=== PATIENT | male | born 1945 | race Caucasian/White ===

== ENCOUNTER 2019-10-07 10:09 | Inpatient (IN) | payer OTHER ==
[2019-10-07] MEDS ORDERED: KETOROLAC TROMETHAMINE 30 MG/1 ML VIAL IVPUSH ONE (10:53)
[2019-10-07] MEDS ORDERED: SODIUM CHLORIDE 1,000 ML IV STA ×2 (10:53→12:02)
--- NOTE | 2019-10-07 11:00 | PDOC ---
History of Present Illness - General Chief Complaint: Pain Stated Complaint: TESTICULAR PAIN Time Seen by Provider: 10/07/19 10:19 - History of Present Illness Initial Comments: 10/07/19 10:54 74 M with no PMH presents to ED with L scrotal pain x 6 days. Pt states that he has pain isolated to his L testicle. Denies any flank pain. Denies abdominal pain. The pain is constant. He notes associated N+V. No diarrhea but has been constipated for several days. Denies any injury. No masses. No redness/ swelling. No dysuria. Pt denies any recent sexual activity, no h/o STIs. No rectal pain. Notes that he previously saw a urologist for a similar problem and was told he had prostate "fullness". He is not on any meds currently. Denies any difficulty urinating. Denies F/C. Past History - Past Medical History Allergies/Adverse Reactions: Allergies Allergy/AdvReac Type Severity Reaction Status Date / Time No Known Allergies Allergy Verified 10/07/19 10:10 Home Medications: Ambulatory Orders NK [No Known Home Medication] 10/07/19 COPD: No - Psycho Social/Smoking Cessation Hx Smoking History: Never smoked Have you smoked in the past 12 months: No Information on smoking cessation initiated: No Hx Alcohol Use: No Drug/Substance Use Hx: No Review of Systems - Review of Systems Comments:: 10/07/19 10:59 "GENERAL/CONSTITUTIONAL: No fever or chills. No weakness. HEAD, EYES, EARS, NOSE AND THROAT: No change in vision. No ear pain or discharge. No sore throat. CARDIOVASCULAR: No chest pain, no shortness of breath, no loss of consciousness RESPIRATORY: No cough, wheezing, or hemoptysis. GASTROINTESTINAL: + nausea, vomiting, no diarrhea or constipation. GENITOURINARY: + L scrotal pain, No dysuria, frequency, or change in urination. MUSCULOSKELETAL: No joint or muscle swelling or pain. No neck or back pain. SKIN: No rash NEUROLOGIC: No vertigo, no change in strength/sensation. ENDOCRINE: No increased thirst. No abnormal weight change. HEMATOLOGIC/LYMPHATIC: No anemia, easy bleeding, or history of blood clots. ALLERGIC/IMMUNOLOGIC: No hives or skin allergy. *Physical Exam - Vital Signs Last Vital Signs Temp Pulse Resp BP Pulse Ox 98.2 F 109 H 20 143/100 99 10/07/19 10:09 10/07/19 10:09 10/07/19 10:09 10/07/19 10:09 10/07/19 10:09 - Physical Exam 10/07/19 10:59 "GENERAL: Awake, alert, and fully oriented, in no acute distress. HEAD: No signs of trauma EYES: PERRLA, EOMI, sclera anicteric, conjunctiva clear ENT: Auricles normal inspection, hearing grossly normal, nares patent, oropharynx clear without exudates. Moist mucosa NECK: Nontender, no stepoffs, Normal ROM, supple, no lymphadenopathy, JVD, or masses LUNGS: Breath sounds equal, clear to auscultation bilaterally. No wheezes, and no crackles HEART: Regular rate and rhythm, normal S1 and S2, no murmurs, rubs or gallops ABDOMEN: Soft, nontender, normoactive bowel sounds. No guarding, no rebound. No masses EXTREMITIES: Normal range of motion, no edema. No clubbing or cyanosis. No cords, erythema, or tenderness NEUROLOGICAL: Cranial nerves II through XII intact. 5/5 strength and sensation in all extremities, Normal speech, normal gait, normal cerebellar function SKIN: Warm, Dry, normal turgor, no rashes or lesions noted. : + L scrotal tenderness without any masses, no erythema, no inguinal hernia RECTAL: + external hemorrhoid, no prostate bogginess or tenderness, brown stool ED Treatment Course - LABORATORY CBC & Chemistry Diagram: 10/07/19 11:18 10/07/19 11:18 - RADIOLOGY Radiology Studies Ordered: Category Date Time Status SCROTUM AND CONTENTS US [US] Stat Ultrasound 10/07/19 10:53 Ordered Medical Decision Making - Medical Decision Making 10/07/19 11:00 74 M with isolated L scrotal pain and tenderness. No abdominal tenderness to suggest intraabdominal pathology. No evidence of prostatitis on exam. No infectious symptoms. Normal external genitalia. - Labs, UA - Scrotal US - Pain control 10/07/19 15:[address] obtained, showing L ureteral stone with hydro Labs notable for MARY with Cr 2.2 Will admit for IV hydration and continued pain control Discharge - Discharge Information Problems reviewed: Yes Clinical Impression/Diagnosis: Kidney stone - Admission Yes - Follow up/Referral - Patient Discharge Instructions - Post Discharge Activity
[2019-10-07] MEDS ORDERED: KETOROLAC TROMETHAMINE 30 MG/1 ML VIAL ONE (11:13)
[2019-10-07] MEDS ORDERED: ONDANSETRON 4 MG/2 ML VIAL ONE ×2 (11:14→13:23)
[2019-10-07] MEDS ORDERED: ONDANSETRON 4 MG/2 ML VIAL IVPB ONE (11:21)
[2019-10-07 11:26] LABS: HEMATOCRIT 42.1 % (35.4-49); HEMOGLOBIN 14.2 GM/dl (11.7-16.9); MCH 28.7 pg (25.7-33.7); MCHC 33.8 g/dl (32.0-35.9); MEAN CELL VOLUME 84.9 fl (80-96); MEAN PLT VOLUME 11.6 fl (7.5-11.1); PLATELET COUNT 237 K/MM3 (134-434); RBC 4.96 M/mm3 (4.00-5.60); RDW 13.2 % (11.9-15.9); WHITE BLOOD COUNT 13.3 K/mm3 (4.0-10.8)
[2019-10-07 11:39] LABS: ALBUMIN 3.5 g/dl (3.4-5.0); BILIRUBIN,TOTAL 0.6 mg/dl (0.2-1); CALCIUM 9.3 mg/dl (8.5-10); CREATININE 2.2 mg/dl (0.55-1.3); POTASSIUM 4.4 mmol/L (3.5-5.1); TOT PROT 7.1 g/dl (6.4-8.2)
[2019-10-07 11:55] LABS: PLATELET ESTIMATE ADEQUATE
[2019-10-07] MEDS ORDERED: ACETAMINOPHEN 1000 MG/100 ML VIAL (NON FORMULARY) IVPB ONE (11:58)
[2019-10-07] MEDS ORDERED: ACETAMINOPHEN INJECTION 100 ML IVPB ONE (12:09)
[2019-10-07] MEDS ORDERED: morphine CARPU-JECT 4 MG/1 ML DISP.SYRIN IVPUSH ONE ×2 (13:13→13:59)
[2019-10-07] MEDS ORDERED: morphine SULFATE 4 MG/ML VIAL ONE ×2 (13:17→14:01)
[2019-10-07] MEDS ORDERED: ONDANSETRON 4 MG TABLET PO ONE (13:23)
[2019-10-07 13:51] LABS: EPITHELIAL CELLS RARE /hpf
[2019-10-07] MEDS ORDERED: HYDROmorphone HCL CARPU-JECT 1 MG/1 ML DISP.SYRIN IVPUSH ONE (15:32)
[2019-10-07] MEDS ORDERED: HYDROmorphone HCL CARPU-JECT 1 MG/1 ML DISP.SYRIN ONE (15:34)
--- NOTE | 2019-10-07 16:17 | HP ---
CHIEF COMPLAINT: Left scrotal pain PCP: Dr. Campbell/Landon HISTORY OF PRESENT ILLNESS: 74 M with no PMH presents to ED with L scrotal pain x 6 days. Pt states that he has pain isolated to his L testicle. Denies any flank pain. Denies abdominal pain. The pain is constant. He notes associated N+V. No diarrhea but has been constipated for several days. Denies any injury. No masses. No redness/ swelling. No dysuria. Pt denies any recent sexual activity, no h/o STIs. No rectal pain. Notes that he previously saw a urologist for a similar problem and was told he had prostate "fullness". He is not on any meds currently. Denies any difficulty urinating. Denies F/C. ER course was notable for: (1) WBC 13.3, p 109 (2) BUN 52, Cr 2.2 (baseline unknown) Recent Travel: No PAST MEDICAL HISTORY: None reported PAST SURGICAL HISTORY: None reported Social History: used to work as a subcontract manager Smoking: never Alcohol: no Drugs: no Allergies No Known Allergies Allergy (Verified 10/07/19 10:10) HOME MEDICATIONS: Home Medications Medication Instructions Recorded NK [No Known Home Medication] 10/07/19 REVIEW OF SYSTEMS CONSTITUTIONAL: Absent: fever, chills, diaphoresis, generalized weakness, malaise, loss of appetite, weight change HEENT: Absent: rhinorrhea, nasal congestion, throat pain, throat swelling, difficulty swallowing, mouth swelling, ear pain, eye pain, visual changes CARDIOVASCULAR: Absent: chest pain, syncope, palpitations, irregular heart rate, lightheadedness , peripheral edema RESPIRATORY: Absent: cough, shortness of breath, dyspnea with exertion, orthopnea, wheezing, stridor, hemoptysis GASTROINTESTINAL: Absent: abdominal pain, abdominal distension, nausea, vomiting, diarrhea, constipation, melena, hematochezia GENITOURINARY: +left testicular pain, mild left flank pain Absent: dysuria, frequency, urgency, hesitancy, hematuria MUSCULOSKELETAL: Absent: myalgia, arthralgia, joint swelling, back pain, neck pain SKIN: Absent: rash, itching, pallor HEMATOLOGIC/IMMUNOLOGIC: Absent: easy bleeding, easy bruising, lymphadenopathy, frequent infections ENDOCRINE: Absent: unexplained weight gain, unexplained weight loss, heat intolerance, cold intolerance NEUROLOGIC: Absent: headache, focal weakness or paresthesias, dizziness, unsteady gait, seizure, mental status changes, bladder or bowel incontinence PSYCHIATRIC: Absent: anxiety, depression, suicidal or homicidal ideation, hallucinations. PHYSICAL EXAMINATION Vital Signs - 24 hr 10/07/19 10/07/19 10:09 15:41 Temperature 98.2 F 98.2 F Pulse Rate 109 H Pulse Rate [ 88 Right Radial] Respiratory 20 20 Rate Blood Pressure 143/100 Blood Pressure 128/73 [Left Arm] O2 Sat by Pulse 99 99 Oximetry (%) GENERAL: Awake, alert, and fully oriented, in no acute distress. HEAD: Normal with no signs of trauma. EYES: Pupils equal, round and reactive to light, extraocular movements intact, sclera anicteric, conjunctiva clear. LUNGS: Breath sounds equal, clear to auscultation bilaterally. HEART: Regular rate and rhythm, normal S1 and S2 ABDOMEN: Soft, nontender, not distended, normoactive bowel sounds, no guarding, no rebound tenderness MUSCULOSKELETAL: Normal range of motion at all joints. No bony deformities or tenderness. No CVA tenderness. UPPER EXTREMITIES: 2+ pulses, warm, well-perfused. No cyanosis. No clubbing. No peripheral edema. LOWER EXTREMITIES: 2+ pulses, warm, well-perfused. No calf tenderness. No peripheral edema. GI/: No scrotal tenderness, no edema, no erythema, tiny white pustule left testicle NEUROLOGICAL: Cranial nerves II-XII intact. Normal speech. Laboratory Results - last 24 hr 10/07/19 10/07/19 10/07/19 11:05 11:18 11:18 WBC 13.3 H RBC 4.96 Hgb 14.2 Hct 42.1 MCV 84.9 MCH 28.7 MCHC 33.8 RDW 13.2 Plt Count 237 MPV 11.6 H Absolute Neuts (auto) 11.0 Neutrophils % No Result Required. Neutrophils % (Manual) 83.0 H Lymphocytes % No Result Required. Lymphocytes % (Manual) 14.0 Monocytes % (Manual) 3 L Platelet Estimate Adequate Sodium 135 L Potassium 4.4 Chloride 106 Carbon Dioxide 20 L Anion Gap 9 BUN 52.0 H Creatinine 2.2 H Est GFR (CKD-EPI)AfAm 33.45 Est GFR (CKD-EPI)NonAf 28.86 Random Glucose 128 H Calcium 9.3 Total Bilirubin 0.6 AST 13 L ALT 12 L Alkaline Phosphatase 62 Total Protein 7.1 Albumin 3.5 Urine Color Urine Appearance Urine pH Urine Protein Urine Glucose (UA) Urine Ketones Urine Blood Urine Nitrite Urine Bilirubin Urine Urobilinogen Ur Leukocyte Esterase Urine RBC Urine WBC Ur Transition Epith Cell Stool Occult Blood Negative 10/07/19 13:13 WBC RBC Hgb Hct MCV MCH MCHC RDW Plt Count MPV Absolute Neuts (auto) Neutrophils % Neutrophils % (Manual) Lymphocytes % Lymphocytes % (Manual) Monocytes % (Manual) Platelet Estimate Sodium Potassium Chloride Carbon Dioxide Anion Gap BUN Creatinine Est GFR (CKD-EPI)AfAm Est GFR (CKD-EPI)NonAf Random Glucose Calcium Total Bilirubin AST ALT Alkaline Phosphatase Total Protein Albumin Urine Color Yellow Urine Appearance Clear Urine pH 5.5 Urine Protein Negative Urine Glucose (UA) Negative Urine Ketones Negative Urine Blood Trace-intact Urine Nitrite Negative Urine Bilirubin Negative Urine Urobilinogen 0.2 Ur Leukocyte Esterase Negative Urine RBC 0-2 Urine WBC 0-2 Ur Transition Epith Cell Rare Stool Occult Blood ASSESSMENT/PLAN: 74 year-old male with no reported significant PMH. Admitted for hydronephrosis secondary to a ureteral stone and elevated creatinine. Mild left hydronephrosis secondary to left ureteral calculus --CTAP: 3mm distal left ureteral calculus at level of lower pelvis with resultant mild hydronephrosis; non-obstructing, should pass, strain urine --US: no testicular torsion or epididymoorchitis; loculated/septated right epididymal cyst/spermatoceles --IV fluids --pain management; avoid ketorolac due to elevated Cr --start tamsulosin --urology consult placed --UA negative; +leukocytosis, will start empiric ceftriaxone Elevated creatinine --baseline unknown --bladder scan now --US kidneys, bladder, assess for post-void residual FEN Fluids: NS@125mL/hr Electrolytes: replete as indicated Nutrition: regular diet DVT prophylaxis: subq heparin Dispo: continues to require inpatient care. Full code. ISTOP Search Terms: Juancarlos Guardado, 1945 Search Date: 10/07/2019 04:30:44 PM The Drug Utilization Report below displays all of the controlled substance prescriptions, if any, that your patient has filled in the last twelve months. The information displayed on this report is compiled from pharmacy submissions to the Department, and accurately reflects the information as submitted by the pharmacies. This report was requested by: Ana Singleton | Reference #: [id number] There are no results for the search terms that you entered. Visit type - Emergency Visit Emergency Visit: Yes ED Registration Date: 10/07/19 Care time: The patient presented to the Emergency Department on the above date and was hospitalized for further evaluation of their emergent condition. - New Patient This patient is new to me today: Yes Date on this admission: 10/09/19 - Critical Care Critical Care patient: No
[2019-10-07] MEDS: SODIUM CHLORIDE 1,000 ML IV SCH (16:38)
[2019-10-07] MEDS: TAMSULOSIN HCL 0.4 MG CAP PO SCH (17:35)
[2019-10-07] MEDS: NICOTINE 21 MG/24 HOURS TOPICAL PATCH TD SCH (17:35)
[2019-10-07 17:37] VITALS: BMI 26.3
[2019-10-07] MEDS ORDERED: CEFTRIAXONE 1 G/50 ML PREMIX 50 ML IVPB SCH (18:00)
[2019-10-07] MEDS ORDERED: CEFTRIAXONE 1 GM in DEXTROSE 5%-WATER - 50 ML IVPB SCH (18:00)
[2019-10-07] MEDS: HEPARIN NA (PORCINE) 5,000 UNITS/ML 1ML VIAL SQ SCH (21:50)
[2019-10-08] MEDS: MELATONIN 1 MG TABLET PO SCH ×2 (00:32→21:14)
[2019-10-08] MEDS: HEPARIN NA (PORCINE) 5,000 UNITS/ML 1ML VIAL SQ SCH ×3 (06:25→21:14)
[2019-10-08 08:01] LABS: BASO % 0.3 % (0-2.0); EOS % 1.2 % (0-4.5); HEMATOCRIT 31.5 % (35.4-49); HEMOGLOBIN 10.6 GM/dl (11.7-16.9); LYMPH % 14.5 % (8-40); MCH 28.8 pg (25.7-33.7); MCHC 33.8 g/dl (32.0-35.9); MEAN CELL VOLUME 85.3 fl (80-96); MEAN PLT VOLUME 10.7 fl (7.5-11.1); MONO % 7.3 % (3.8-10.2); NEUT % 76.7 % (42.8-82.8); PLATELET COUNT 147 K/MM3 (134-434); RBC 3.69 M/mm3 (4.00-5.60); RDW 13.1 % (11.9-15.9); WHITE BLOOD COUNT 9.2 K/mm3 (4.0-10.8)
[2019-10-08 08:09] LABS: ALBUMIN 2.5 g/dl (3.4-5.0); BILIRUBIN,TOTAL 0.4 mg/dl (0.2-1); CALCIUM 8.3 mg/dl (8.5-10); CREATININE 1.9 mg/dl (0.55-1.3); MAGNESIUM 1.6 mg/dL (1.8-2.4); POTASSIUM 4.6 mmol/L (3.5-5.1)
[2019-10-08 08:10] LABS: INR 1.07 (0.82-1.09)
[2019-10-08] MEDS: TAMSULOSIN HCL 0.4 MG CAP PO SCH (10:11)
[2019-10-08] MEDS: NICOTINE 21 MG/24 HOURS TOPICAL PATCH TD SCH (10:11)
--- NOTE | 2019-10-08 13:11 | EKG ---
Test Reason : Blood Pressure : / mmHG Vent. Rate : 083 BPM Atrial Rate : 083 BPM P-R Int : 202 ms QRS Dur : 106 ms QT Int : 378 ms P-R-T Axes : 057 -23 001 degrees QTc Int : 444 ms NORMAL SINUS RHYTHM CANNOT RULE OUT ANTERIOR INFARCT , AGE UNDETERMINED NONSPECIFIC ST ABNORMALITY NO PREVIOUS ECGS AVAILABLE Confirmed by SUZANNE CACERES MD ([id number]) on 10/08/2019 1:10:51 PM Referred By: ATTILA DEL VALLE Confirmed By:SUZANNE CACERES MD
[2019-10-08] MEDS: HYDROmorphone HCL CARPU-JECT 1 MG/1 ML DISP.SYRIN IVPUSH PRN (14:07)
[2019-10-08] MEDS: SODIUM CHLORIDE 1,000 ML IV SCH (17:57)
[2019-10-08] MEDS: ACETAMINOPHEN 1000 MG/100 ML VIAL (NON FORMULARY) IVPB PRN (19:41)
[2019-10-08] MEDS: ONDANSETRON 4 MG/2 ML VIAL IVPUSH PRN (19:46)
--- NOTE | 2019-10-08 22:05 | PN ---
Physical Exam: SUBJECTIVE: Patient seen and examined. Was pain free last night and most of today. This afternoon, left testicular pain and nausea returned. OBJECTIVE: Vital Signs Period Temp Pulse Resp BP Sys/Velasquez Pulse Ox Last 24 Hr 98.0 F-98.5 F 76-106 16-19 104-134/57-70 99-100 GENERAL: Awake, alert, and fully oriented, in no acute distress. HEAD: Normal with no signs of trauma. EYES: Pupils equal, round and reactive to light, extraocular movements intact, sclera anicteric, conjunctiva clear. LUNGS: Breath sounds equal, clear to auscultation bilaterally. HEART: Regular rate and rhythm, normal S1 and S2 ABDOMEN: Soft, nontender, not distended, normoactive bowel sounds, no guarding, no rebound tenderness MUSCULOSKELETAL: Normal range of motion at all joints. No bony deformities or tenderness. No CVA tenderness. UPPER EXTREMITIES: 2+ pulses, warm, well-perfused. No cyanosis. No clubbing. No peripheral edema. LOWER EXTREMITIES: 2+ pulses, warm, well-perfused. No calf tenderness. No peripheral edema. GI/: No scrotal tenderness, no edema, no erythema, tiny white pustule left testicle NEUROLOGICAL: Cranial nerves II-XII intact. Normal speech. Laboratory Results - last 24 hr 10/08/19 10/08/19 10/08/19 07:25 07:25 07:25 WBC 9.2 RBC 3.69 L Hgb 10.6 L Hct 31.5 L D MCV 85.3 MCH 28.8 MCHC 33.8 RDW 13.1 Plt Count 147 D MPV 10.7 Absolute Neuts (auto) 7.1 Neutrophils % 76.7 Lymphocytes % 14.5 Monocytes % 7.3 Eosinophils % 1.2 Basophils % 0.3 PT with INR 12.0 INR 1.07 PTT (Actin FS) 23.0 L Sodium 135 L Potassium 4.6 Chloride 111 H Carbon Dioxide 21 Anion Gap 3 L BUN 42.0 H Creatinine 1.9 H Est GFR (CKD-EPI)AfAm 39.93 Est GFR (CKD-EPI)NonAf 34.45 Random Glucose 105 Calcium 8.3 L Magnesium 1.6 L Total Bilirubin 0.4 AST 10 L ALT 9 L Alkaline Phosphatase 45 D Total Protein 5.0 L Albumin 2.5 L Active Medications Generic Name Dose Route Start Last Admin Trade Name Freq PRN Reason Stop Dose Admin Acetaminophen 1,000 mg 10/07/19 18:03 10/08/19 19:41 Ofirmev Injection - IVPB 1,000 mg Q6H PRN Administration PAIN LEVEL 1-5 Heparin Sodium (Porcine) 5,000 unit 10/07/19 22:00 10/08/19 21:14 Heparin - SQ 5,000 unit TID LATESHA Administration Hydromorphone HCl 0.5 mg 10/07/19 18:03 10/08/19 14:07 Dilaudid Injection - IVPUSH 0.5 mg Q4H PRN Administration PAIN LEVEL 6-10 Sodium Chloride 1,000 mls @ 125 mls/hr 10/07/19 16:30 10/08/19 17:57 Normal Saline - IV 125 mls/hr ASDIR LATESHA Administration Ceftriaxone Sodium 50 mls @ 200 mls/hr 10/07/19 18:00 10/08/19 10:11 Ceftriaxone 1 Gm-D5w Bag IVPB 200 mls/hr DAILY LATESHA Administration Protocol Melatonin 1 mg 10/08/19 22:00 10/08/19 21:14 Melatonin PO 1 mg HS LATESHA Administration Nicotine 21 mg 10/07/19 17:45 10/08/19 10:11 Nicoderm Patch - TD 21 mg DAILY LATESHA Administration Ondansetron HCl 4 mg 10/08/19 19:33 10/08/19 19:46 Zofran Injection IVPUSH 4 mg Q6H PRN Administration NAUSEA Tamsulosin HCl 0.4 mg 10/07/19 17:00 10/08/19 10:11 Flomax - PO 0.4 mg 0830 LATESHA Administration ASSESSMENT/PLAN 74 year-old male with no reported significant PMH. Admitted for hydronephrosis secondary to a ureteral stone and elevated creatinine. Mild left hydronephrosis secondary to left ureteral calculus --CTAP: 3mm distal left ureteral calculus at level of lower pelvis with resultant mild hydronephrosis; non-obstructing, should pass, strain urine --US: no testicular torsion or epididymoorchitis; loculated/septated right epididymal cyst/spermatoceles --IV fluids --pain management; avoid ketorolac due to elevated Cr --start tamsulosin --urology consult still pending --UA negative; UC negative; observe off antibiotics Elevated creatinine --Cr 2.2 on admission, 1.9 today --US renal: unremarkable --US bladder: no post-void residual --continue to monitor renal function, continue IV fluids FEN Fluids: NS@125mL/hr Electrolytes: replete as indicated Nutrition: regular diet DVT prophylaxis: subq heparin Dispo: continues to require inpatient care. Full code. Visit type - Emergency Visit Emergency Visit: Yes ED Registration Date: 10/07/19 Care time: The patient presented to the Emergency Department on the above date and was hospitalized for further evaluation of their emergent condition. - New Patient This patient is new to me today: No - Critical Care Critical Care patient: No
[2019-10-09] MEDS: HEPARIN NA (PORCINE) 5,000 UNITS/ML 1ML VIAL SQ SCH ×3 (06:40→21:18)
[2019-10-09] MEDS: HYDROmorphone HCL CARPU-JECT 1 MG/1 ML DISP.SYRIN IVPUSH PRN (07:14)
[2019-10-09] MEDS: ONDANSETRON 4 MG/2 ML VIAL IVPUSH PRN (07:24)
[2019-10-09 08:23] LABS: BASO % 0.5 % (0-2.0); EOS % 1.8 % (0-4.5); HEMATOCRIT 29.4 % (35.4-49); HEMOGLOBIN 9.7 GM/dl (11.7-16.9); LYMPH % 22.2 % (8-40); MCH 28.1 pg (25.7-33.7); MEAN CELL VOLUME 85.1 fl (80-96); MEAN PLT VOLUME 10.2 fl (7.5-11.1); MONO % 8.2 % (3.8-10.2); NEUT % 67.3 % (42.8-82.8); PLATELET COUNT 146 K/MM3 (134-434); RBC 3.45 M/mm3 (4.00-5.60); RDW 12.6 % (11.9-15.9); WHITE BLOOD COUNT 7.6 K/mm3 (4.0-10.8)
--- NOTE | 2019-10-09 08:28 | CON.GU ---
Consult Consult Specialty:: urology Reason for Consultation:: left ureteral stone - History of Present Illness Chief Complaint: left ureteral stone History of Present Illness: Patient is a 74 year old male with history of distal left ureteral stone. The patient currently has left scrotal discomfort and nausea on dilaudid and zofran. Renal sonogram performed yesterday showed no hydronephrosis. His serum creatinine has risen to 2.2. Patient denies gross hematuria or fever and chills. - Alcohol/Substance Use Hx Alcohol Use: No - Smoking History Smoking history: Never smoked Have you smoked in the past 12 months: No Home Medications - Allergies Allergies/Adverse Reactions: Allergies Allergy/AdvReac Type Severity Reaction Status Date / Time No Known Allergies Allergy Verified 10/07/19 10:10 - Home Medications Home Medications: Ambulatory Orders NK [No Known Home Medication] 10/07/19 Physical Exam- Vital Signs: Vital Signs Temperature 99.1 F 10/09/19 06:00 Pulse Rate 84 10/09/19 06:00 Respiratory Rate 18 10/09/19 06:00 Blood Pressure 103/54 L 10/09/19 06:00 O2 Sat by Pulse Oximetry (%) 98 10/09/19 06:00 Constitutional: Yes: Well Nourished, No Distress, Calm Eyes: Yes: WNL, Conjunctiva Clear, EOM Intact HENT: Yes: WNL, Atraumatic, Normocephalic Neck: Yes: WNL, Supple, Trachea Midline Cardiovascular: Yes: Regular Rate and Rhythm Respiratory: Yes: Regular Gastrointestinal: Yes: Soft Renal/: Yes: CVA Tenderness - Left (mild) Kidneys: Yes: Flank Pain Left Pelvis: Yes: WNL, Bladder Non Palpable Testicles: Yes: WNL Scrotum: Yes: WNL Penis: Yes: WNL Prostate Exam: Yes: Deferred Imaging - Results Cat Scan: Report Reviewed Ultrasound: Report Reviewed Assessment/Plan imression distal left ureteral stone acute kidney injury plan continue with rocephin and flomax toradol may be used strain all urine
[2019-10-09 08:41] LABS: ALBUMIN 2.4 g/dl (3.4-5.0); BILIRUBIN,TOTAL 0.5 mg/dl (0.2-1); CALCIUM 8.3 mg/dl (8.5-10); CREATININE 1.6 mg/dl (0.55-1.3); MAGNESIUM 1.6 mg/dL (1.8-2.4); POTASSIUM 3.9 mmol/L (3.5-5.1)
[2019-10-09] MEDS: TAMSULOSIN HCL 0.4 MG CAP PO SCH (10:00)
[2019-10-09] MEDS: NICOTINE 21 MG/24 HOURS TOPICAL PATCH TD SCH (10:38)
--- NOTE | 2019-10-09 10:51 | PN ---
Physical Exam: SUBJECTIVE: Patient seen and examined, still c/o left testicular pain, denies any urinary symptoms,fever, chills, abdominal pain, N/V/D. OBJECTIVE: Vital Signs Period Temp Pulse Resp BP Sys/Velasquez Pulse Ox Last 24 Hr 98.0 F-99.1 F 84-107 16-19 103-123/54-70 95-100 GENERAL: The patient is awake, alert, and fully oriented, in no acute distress. HEAD: Normal with no signs of trauma. EYES: PERRL, extraocular movements intact, sclera anicteric, conjunctiva clear. No ptosis. ENT: Ears normal, nares patent, oropharynx clear without exudates, moist mucous membranes. NECK: Trachea midline, full range of motion, supple. LUNGS: Breath sounds equal, clear to auscultation bilaterally, no wheezes, no crackles, no accessory muscle use. HEART: Regular rate and rhythm, S1, S2 without murmur, rub or gallop. ABDOMEN: Soft, nontender, nondistended, normoactive bowel sounds, no guarding, no rebound, no hepatosplenomegaly, no masses. EXTREMITIES: 2+ pulses, warm, well-perfused, no edema. NEUROLOGICAL: Cranial nerves II through XII grossly intact. Normal speech, gait not observed. PSYCH: Normal mood, normal affect. SKIN: Warm, dry, normal turgor, no rashes or lesions noted Laboratory Results - last 24 hr 10/09/19 10/09/19 07:52 07:52 WBC 7.6 RBC 3.45 L Hgb 9.7 L Hct 29.4 L MCV 85.1 MCH 28.1 MCHC 33.0 RDW 12.6 Plt Count 146 MPV 10.2 Absolute Neuts (auto) 5.2 Neutrophils % 67.3 Lymphocytes % 22.2 D Monocytes % 8.2 Eosinophils % 1.8 Basophils % 0.5 Sodium 137 Potassium 3.9 Chloride 112 H Carbon Dioxide 20 L Anion Gap 5 L BUN 32.0 H Creatinine 1.6 H Est GFR (CKD-EPI)AfAm 49.15 Est GFR (CKD-EPI)NonAf 42.41 Random Glucose 98 Calcium 8.3 L Magnesium 1.6 L Total Bilirubin 0.5 AST 11 L ALT 9 L Alkaline Phosphatase 44 L Total Protein 5.0 L Albumin 2.4 L Active Medications Generic Name Dose Route Start Last Admin Trade Name Freq PRN Reason Stop Dose Admin Acetaminophen 1,000 mg 10/07/19 18:03 10/08/19 19:41 Ofirmev Injection - IVPB 1,000 mg Q6H PRN Administration PAIN LEVEL 1-5 Heparin Sodium (Porcine) 5,000 unit 10/07/19 22:00 10/09/19 06:40 Heparin - SQ 5,000 unit TID LATESHA Administration Hydromorphone HCl 0.5 mg 10/07/19 18:03 10/09/19 07:14 Dilaudid Injection - IVPUSH 0.5 mg Q4H PRN Administration PAIN LEVEL 6-10 Sodium Chloride 1,000 mls @ 125 mls/hr 10/07/19 16:30 10/08/19 17:57 Normal Saline - IV 125 mls/hr ASDIR LATESHA Administration Melatonin 1 mg 10/08/19 22:00 10/08/19 21:14 Melatonin PO 1 mg HS LATESHA Administration Nicotine 21 mg 10/07/19 17:45 10/08/19 10:11 Nicoderm Patch - TD 21 mg DAILY LATESHA Administration Ondansetron HCl 4 mg 10/08/19 19:33 10/09/19 07:24 Zofran Injection IVPUSH 4 mg Q6H PRN Administration NAUSEA Tamsulosin HCl 0.4 mg 10/07/19 17:00 10/08/19 10:11 Flomax - PO 0.4 mg 0830 LATESHA Administration Microbiology 10/07/19 13:13 Urine Culture - Final Urine - Urine Clean Catch NO GROWTH OBTAINED ASSESSMENT/PLAN: 74 year-old male with a history of distal left ureteral stone. Admitted for hydronephrosis secondary to a ureteral stone and elevated creatinine. *Mild left hydronephrosis secondary to left ureteral calculus -CTAP: 3mm distal left ureteral calculus at level of lower pelvis with resultant mild hydronephrosis; non-obstructing, should pass, strain urine -US: no testicular torsion or epididymoorchitis; loculated/septated right epididymal cyst/spermatoceles -IV fluids -pain management; avoid ketorolac due to elevated Cr -urology input appreciated, rec to strain all urine - will cont on Flomax and empiric ceftriaxone - UA negative *Elevated creatinine-baseline unknown --Cr 2.2 on admission, 1.9 >1.6 today -US renal: unremarkable -US bladder: no post-void residual -continue to monitor renal function, continue IV fluids * Anemia - likely dilutional - Stool OB negative - no overt signs of bleeding noted FEN Fluids: NS@ 75mL/hr Electrolytes: replete as indicated Nutrition: regular diet DVT prophylaxis: subq heparin Visit type - Emergency Visit Emergency Visit: Yes ED Registration Date: 10/07/19 Care time: The patient presented to the Emergency Department on the above date and was hospitalized for further evaluation of their emergent condition. - New Patient This patient is new to me today: Yes Date on this admission: 10/09/19 - Critical Care Critical Care patient: No
[2019-10-09] MEDS: SODIUM CHLORIDE 1,000 ML IV SCH (11:10)
[2019-10-09] MEDS: MELATONIN 1 MG TABLET PO SCH (21:18)
[2019-10-10] MEDS: HEPARIN NA (PORCINE) 5,000 UNITS/ML 1ML VIAL SQ SCH (06:15)
[2019-10-10 08:43] LABS: HEMOGLOBIN 9.1 GM/dl (11.7-16.9); MEAN PLT VOLUME 11.2 fl (7.5-11.1); MONO % 9.6 % (3.8-10.2)
[2019-10-10 08:48] LABS: BASO % 0.5 % (0-2.0); EOS % 1.4 % (0-4.5); LYMPH % 22.9 % (8-40); MCH 28.7 pg (25.7-33.7); MCHC 33.6 g/dl (32.0-35.9); MEAN CELL VOLUME 85.5 fl (80-96); NEUT % 65.6 % (42.8-82.8); PLATELET COUNT 157 K/MM3 (134-434); RBC 3.16 M/mm3 (4.00-5.60); RDW 12.7 % (11.9-15.9); WHITE BLOOD COUNT 8.2 K/mm3 (4.0-10.8)
[2019-10-10 09:28] LABS: CALCIUM 8.1 mg/dl (8.5-10); CREATININE 1.7 mg/dl (0.55-1.3); POTASSIUM 3.9 mmol/L (3.5-5.1)
[2019-10-10] MEDS: TAMSULOSIN HCL 0.4 MG CAP PO SCH (09:48)
[2019-10-10] MEDS: NICOTINE 21 MG/24 HOURS TOPICAL PATCH TD SCH (09:48)
[2019-10-10] MEDS: ACETAMINOPHEN 1000 MG/100 ML VIAL (NON FORMULARY) IVPB PRN (10:48)
[2019-10-10] MEDS ORDERED: METOCLOPRAMIDE HCL 10 MG TABLET (FP) PO ONE (12:00)
[2019-10-10] MEDS ORDERED: PROMETHAZINE HCL 25 MG/1 ML VIAL IVPB PRN (13:04)
[2019-10-10] MEDS ORDERED: PANTOPRAZOLE 40 MG TABLET PO ONE (13:17)
--- NOTE | 2019-10-10 13:20 | PN ---
Physical Exam: SUBJECTIVE: Patient seen and examined, pt c/o nausea nd vomiting, no relief with Zofran and Reglan, denies any pain dysuria, hematuria. OBJECTIVE: Vital Signs Period Temp Pulse Resp BP Sys/Velasquez Pulse Ox Last 24 Hr 98.0 F-99.2 F 83-105 18-19 98-142/57-68 95-98 GENERAL: The patient is awake, alert, and fully oriented, in no acute distress. HEAD: Normal with no signs of trauma. EYES: PERRL, extraocular movements intact, sclera anicteric, conjunctiva clear. No ptosis. ENT: Ears normal, nares patent, oropharynx clear without exudates, moist mucous membranes. NECK: Trachea midline, full range of motion, supple. LUNGS: Breath sounds equal, clear to auscultation bilaterally, no wheezes, no crackles, no accessory muscle use. HEART: Regular rate and rhythm, S1, S2 without murmur, rub or gallop. ABDOMEN: Soft, nontender, nondistended, normoactive bowel sounds, no guarding, no rebound, no hepatosplenomegaly, no masses. EXTREMITIES: 2+ pulses, warm, well-perfused, no edema. NEUROLOGICAL: Cranial nerves II through XII grossly intact. Normal speech, gait not observed. PSYCH: Normal mood, normal affect. SKIN: Warm, dry, normal turgor, no rashes or lesions noted Laboratory Results - last 24 hr 10/10/19 10/10/19 08:55 08:55 WBC 8.2 RBC 3.16 L Hgb 9.1 L Hct 27.0 L MCV 85.5 MCH 28.7 MCHC 33.6 RDW 12.7 Plt Count 157 MPV 11.2 H Absolute Neuts (auto) 5.4 Neutrophils % 65.6 Lymphocytes % 22.9 Monocytes % 9.6 Eosinophils % 1.4 Basophils % 0.5 Sodium 136 Potassium 3.9 Chloride 110 H Carbon Dioxide 20 L Anion Gap 6 L BUN 25.0 H Creatinine 1.7 H Est GFR (CKD-EPI)AfAm 45.68 Est GFR (CKD-EPI)NonAf 39.41 Random Glucose 92 Calcium 8.1 L Active Medications Generic Name Dose Route Start Last Admin Trade Name Freq PRN Reason Stop Dose Admin Acetaminophen 1,000 mg 10/07/19 18:03 10/10/19 10:48 Ofirmev Injection - IVPB 1,000 mg Q6H PRN Administration PAIN LEVEL 1-5 Heparin Sodium (Porcine) 5,000 unit 10/07/19 22:00 10/10/19 06:15 Heparin - SQ 5,000 unit TID LATESHA Administration Hydromorphone HCl 0.5 mg 10/07/19 18:03 10/09/19 07:14 Dilaudid Injection - IVPUSH 0.5 mg Q4H PRN Administration PAIN LEVEL 6-10 Sodium Chloride 1,000 mls @ 75 mls/hr 10/09/19 10:52 10/09/19 11:10 Normal Saline - IV 75 mls/hr ASDIR LATESHA Administration Melatonin 1 mg 10/08/19 22:00 10/09/19 21:18 Melatonin PO 1 mg HS LATESHA Administration Nicotine 21 mg 10/07/19 17:45 10/10/19 09:48 Nicoderm Patch - TD 21 mg DAILY LATESHA Administration Promethazine HCl 12.5 mg 10/10/19 13:04 Phenergan Injection - IVPB Q6H PRN NAUSEA AND/OR VOMITING Tamsulosin HCl 0.4 mg 10/07/19 17:00 10/10/19 09:48 Flomax - PO 0.4 mg 0830 LATESHA Administration ASSESSMENT/PLAN: 74 year-old male with a history of distal left ureteral stone. Admitted for hydronephrosis secondary to a ureteral stone and elevated creatinine. *Mild left hydronephrosis secondary to left ureteral calculus -CTAP: 3mm distal left ureteral calculus at level of lower pelvis with resultant mild hydronephrosis; non-obstructing, should pass, strain urine -US: no testicular torsion or epididymoorchitis; loculated/septated right epididymal cyst/spermatoceles -IV fluids -pain management; avoid ketorolac due to elevated Cr -urology input appreciated, rec to strain all urine - will cont on Flomax and empiric ceftriaxone - UA negative * Nausea/ vomiting, coughed up blood (clot) - started on PPI - no relief with Zofran and Reglan - will try Phernergan and monitor - stat CBC ordered - will cont on to monitor pt closely *Elevated creatinine-baseline unknown --Cr 2.2 on admission, 1.9 >1.6 >1.7today -US renal: unremarkable -US bladder: no post-void residual -continue to monitor renal function, continue IV fluids * Anemia - likely dilutional - Stool OB negative - coughed up blood - will monitor CBc closely - added PPI FEN Fluids: NS@ 75mL/hr Electrolytes: replete as indicated Nutrition: regular diet DVT prophylaxis: SCD's, will hold off on Heparin due to Hemoptysis Repeat CBC stable Visit type - Emergency Visit Emergency Visit: Yes ED Registration Date: 10/07/19 Care time: The patient presented to the Emergency Department on the above date and was hospitalized for further evaluation of their emergent condition. - New Patient This patient is new to me today: Yes Date on this admission: 10/10/19 - Critical Care Critical Care patient: No
[2019-10-10 14:15] LABS: HEMOGLOBIN 9.3 GM/dl (11.7-16.9); MCH 27.8 pg (25.7-33.7); MCHC 33.1 g/dl (32.0-35.9); MEAN CELL VOLUME 84.1 fl (80-96); MEAN PLT VOLUME 11.1 fl (7.5-11.1); PLATELET COUNT 164 K/MM3 (134-434); RBC 3.33 M/mm3 (4.00-5.60); RDW 12.7 % (11.9-15.9)
[2019-10-10] MEDS: SODIUM CHLORIDE 1,000 ML IV SCH (15:08)
[2019-10-10] MEDS: PANTOPRAZOLE SODIUM 40 MG VIAL IVPUSH SCH (21:28)
[2019-10-10] MEDS: DEXTROSE 5%-0.45% SALINE 1,000 ML IV SCH (21:28)
[2019-10-10] MEDS: MELATONIN 1 MG TABLET PO SCH (21:28)
[2019-10-11 08:35] LABS: BASO % 0.5 % (0-2.0); EOS % 2.2 % (0-4.5); HEMOGLOBIN 8.3 GM/dl (11.7-16.9); LYMPH % 25.7 % (8-40); MCH 28.7 pg (25.7-33.7); MCHC 33.3 g/dl (32.0-35.9); MEAN CELL VOLUME 86.3 fl (80-96); MEAN PLT VOLUME 10.5 fl (7.5-11.1); MONO % 7.7 % (3.8-10.2); NEUT % 63.9 % (42.8-82.8); PLATELET COUNT 176 K/MM3 (134-434); RDW 12.8 % (11.9-15.9); WHITE BLOOD COUNT 8.5 K/mm3 (4.0-10.8)
[2019-10-11 08:51] LABS: CALCIUM 8.5 mg/dl (8.5-10); CREATININE 1.7 mg/dl (0.55-1.3); POTASSIUM 4.2 mmol/L (3.5-5.1)
[2019-10-11] MEDS: TAMSULOSIN HCL 0.4 MG CAP PO SCH (09:00)
--- NOTE | 2019-10-11 09:39 | CONSULT ---
Consult - text type - Consultation Consultation Note: CC; left renal colic with distal stone. Now with hematemesis and dark stool. Patient states he has never had colonoscopy. The patient continues with intermittent left lower quadrant and testicular pain. He does continue with nausea and vomiting. Patient denies left renal colic. "The stone has not been passed as all urine has been screened. The patient is currently is comfortable at this time and ate this morning without vomiting. His serum creatinine is 1.7. He denies gross hematuria. PE vss; afeb abd-soft; non-tender; no CVAT labs reviewed plan continue conservative treatment GI consult strain urine continue current meds
[2019-10-11] MEDS: PANTOPRAZOLE SODIUM 40 MG VIAL IVPUSH SCH (10:00)
[2019-10-11] MEDS: NICOTINE 21 MG/24 HOURS TOPICAL PATCH TD SCH (10:00)
[2019-10-11] MEDS ORDERED: PANTOPRAZOLE 40 MG TABLET PO SCH (10:00)
--- NOTE | 2019-10-11 13:10 | CON.PULM ---
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 NO SIGNIFICANT SURGICAL HISTORY. PATIENT WAS FOUND TO HAVE A 3MM DISTAL URETERAL STONE. PATIENT WAS RETCHING YESTERDAY AND VOMITED A BLOOD CLOT. HIS HGB FROM ADMISSION HAS DROPPED FROM 14 GRAMS TO 8 GRAMS. 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 Cardio/Vascular: No: AFIB Pulmonary: No: COPD Gastrointestinal: No: Ascites Hepatobiliary: No: Cirrhosis Renal/: No: Renal Failure Heme/Onc: No: Anemia Infectious Disease: No: AIDS Psych: No: Addictions Musculoskeletal: Yes: Osteoarthritis Rheumatology: No: Fibromyalgia ENT: No: Allergic Rhinitis Endocrine: No: Adelphi's Disease, Diabetes Mellitus - Past Surgical History Past Surgical History: Yes: None - Alcohol/Substance Use Hx Alcohol Use: No - Smoking History Smoking history: Never smoked Have you smoked in the past 12 months: No Home Medications - Allergies Allergies/Adverse Reactions: Allergies Allergy/AdvReac Type Severity Reaction Status Date / Time No Known Allergies Allergy Verified 10/07/19 10:10 - Home Medications Home Medications: Ambulatory Orders NK [No Known Home Medication] 10/07/19 Family Medical History Family History: Unremarkable Review of Systems - Review of Systems Constitutional: reports: Lethargy, Loss of Appetite, Unintentional Wgt. Loss, Weakness. denies: Fever Eyes: denies: Blurred Vision HENT: denies: Difficult Swallowing Neck: denies: Decreased ROM Cardiovascular: denies: Chest Pain Respiratory: reports: Exercise Intolerance, SOB on Exertion. denies: Cough, Hemoptysis, SOB, Wheezing Gastrointestinal: reports: Melena, Nausea, Vomiting, Vomiting Blood Genitourinary: reports: Testicular Pain Breasts: reports: No Symptoms Reported Musculoskeletal: reports: No Symptoms Integumentary: reports: No Symptoms Neurological: reports: No Symptoms Endocrine: reports: No Symptoms Hematology/Lymphatic: reports: No Symptoms Psychiatric: reports: No Symptoms Physical Exam Vital Sings: Vital Signs Temperature 98.5 F 10/11/19 03:00 Pulse Rate 90 10/11/19 03:00 Respiratory Rate 19 10/11/19 03:00 Blood Pressure 113/62 10/11/19 03:00 O2 Sat by Pulse Oximetry (%) 100 10/11/19 05:34 Constitutional: Yes: Calm Eyes: Yes: EOM Intact HENT: Yes: Normocephalic Neck: Yes: Trachea Midline Cardiovascular: Yes: Regular Rate and Rhythm Respiratory: Yes: Diminished Gastrointestinal: Yes: Normal Bowel Sounds Renal/: Yes: Hematuria Breast(s): Yes: WNL Musculoskeletal: Yes: WNL Extremities: Yes: WNL Edema: No Integumentary: Yes: WNL Neurological: Yes: Alert ...Motor Strength: WNL Psychiatric: Yes: WNL Labs: CBC, BMP 10/11/19 07:15 10/11/19 07:15 REST REVIEWED Imaging - Results Chest X-ray: Report Reviewed, Image Reviewed Cat Scan: Report Reviewed, Image Reviewed Problem List - Problems (1) Upper GI bleeding Code(s): K92.2 - GASTROINTESTINAL HEMORRHAGE, UNSPECIFIED (2) Kidney stone Code(s): N20.0 - CALCULUS OF KIDNEY Assessment/Plan RENAL COLIC WITH RETCHING HEMETEMESIS BLOOD LOSS ANEMIA TRANSFER TO MONITORED BED AT [facility] MONITOR CBC/BMP/STRAIN URINE WILL NEED EGD TO EVAL UGI BLEED CONTINUE IV FLUIDS KEEP NPO FOR NOW IV PROTONIX/O2 NEEDED ANALGESIA FOR RENAL COLIC WILL FOLLOW Vasyl LAMB MD
--- NOTE | 2019-10-11 17:38 | CON.GI ---
Consult Consult Specialty:: GI Referred by:: Hospitalist Service Reason for Consultation:: Hematemesis - History of Present Illness Chief Complaint: Dark BM's for 1 week History of Present Illness: 74M admitted to [facility] for evaluation of left scrotal pain. This was occurring intermittently over the last 10 days, worse of late prompting evaluation. Along with the scrotal pain he experienced diminished appetite, retching and dry heaving throughout the week, noticed scant, small bowel movements through the week and after retching yesterday described coughing or vomiting up a clot of blood. His last BM was yesterday. There was no GI coverage availability at [facility] today so he was transferred for further evaluation. Hgb has been dwindling through the course of his admission. The day he was admitted Hgb was 14. Today his Hgb is 8.3. He denies abdominal pain. He has never had an upper endoscopy or colonoscopy. There is no family history of colorectal cancer or other GI malignancy. He has been taking Aleve more frequently over the last 3 weeks due to knee pain. - History Source History Provided By: Patient, Medical Record - Past Medical History Renal/: Yes: Renal Calculi Musculoskeletal: Yes: Osteoarthritis - Past Surgical History Past Surgical History: Yes: None Additional Surgical History: Denies - Alcohol/Substance Use Hx Alcohol Use: No History of Substance Use: reports: None - Smoking History Smoking history: Current every day smoker Have you smoked in the past 12 months: No - Social History Usual Living Arrangement: Alone ADL: Independent Place of : [facility] History of Recent Travel: No Home Medications - Allergies Allergies/Adverse Reactions: Allergies Allergy/AdvReac Type Severity Reaction Status Date / Time No Known Allergies Allergy Verified 10/07/19 10:10 - Home Medications Home Medications: Ambulatory Orders NK [No Known Home Medication] 10/07/19 Family Medical History Other Family History: Father: : 54: [place]. Mother: : 89: Old age. 1 sister / 3 brothers: : he believes of old age. 1 son, 1 daughter: healthy. No family history of colorectal cancer or other GI malignancy Review of Systems - Review of Systems Constitutional: reports: Loss of Appetite. denies: Chills Gastrointestinal: reports: Melena. denies: Abdominal Pain, Constipation Physical Exam-GI Vital Signs: Vital Signs Temperature 98.4 F 10/11/19 15:20 Pulse Rate 98 H 10/11/19 15:20 Respiratory Rate 18 10/11/19 15:24 Blood Pressure 109/62 10/11/19 15:20 O2 Sat by Pulse Oximetry (%) 100 10/11/19 15:24 Constitutional: Yes: Calm Eyes: No: Sclera Icterus Cardiovascular: Yes: Regular Rate and Rhythm. No: Murmur Respiratory: Yes: CTA Bilaterally Gastrointestinal Inspection: No: Distention, Scars ...Auscultate: Yes: Normoactive Bowel Sounds ...Palpate: Yes: Soft. No: Hepatomegaly, Splenomegaly, Tenderness ...Percussion: No: Tympanitic ...Rectal Exam: Yes: Other (+ large external skin tags, no masses, + Melena) Edema: No (No LE edema) Neurological: Yes: Alert Labs: CBC, BMP 10/11/19 07:15 10/11/19 07:15 INR, PTT INR 1.07 (0.82-1.09) 10/08/19 07:25 Problem List - Problems (1) Upper GI bleeding Assessment/Plan: Concern for upper GI blood loss. Explained to patient. Discussed upper endoscopy to evaluated for potential sources such as bleeding blood vessel, MWT from persistent retching/vomiting, PUD, polyps. tumors. Discussed potential risks of the procedure like but not limited to bleeding, perforation requiring surgery to repair, infection, sedation medication effects all of which could be potentially life threatening. he has agreed to the procedure. Advise: Clears for Dinner and stopped regular diet Type and Screen (ordered) Protonix drip (ordered) Repeat CBC (ordered). Keep Hgb >7 NPO after midnight If active melena, worsening hemodynamics, notify GI and transfer to ICU Code(s): K92.2 - GASTROINTESTINAL HEMORRHAGE, UNSPECIFIED
--- NOTE | 2019-10-11 19:42 | PN ---
Physical Exam: 74 M smoker, h/o distal left ureteral stone. Admitted for hydronephrosis secondary to a ureteral stone and MARY, now with black stool and suspected UGIB, awaiting EGD for AM. Patient endorses some SOB on exertion which has been going on for "a while" but has worsened recently, denies overt CP. Still smoking trying to cut down, denies history of GI/ bleeding but has taken some Aleve over the past 1-2 weeks due to knee pain. Otherwise VSS, awaiting EGD for AM, NPO MN, T/S pending, trending CBC. PE GA comfortable, AAox3, sitting up in bed, appears slightly pale HEENT NC/AT, EOMI, dry MM, neck supple, no scleral icterus Chest CTAB, no wheezing or crackles CVS S1, S2+, RRR Abd Soft, NT, ND, no HSM, no guarding Ext NO LE edema, moves all 4 extremities, decreased capillary refill Vital Signs - 24 hr 10/10/19 10/10/19 10/11/19 21:00 21:33 03:00 Temperature 99 F 98.5 F Pulse Rate 101 H 90 Respiratory 18 18 19 Rate Blood Pressure 95/54 L 113/62 O2 Sat by Pulse 99 Oximetry (%) 10/11/19 10/11/19 10/11/19 05:34 15:20 15:24 Temperature 98.4 F Pulse Rate 98 H Respiratory 18 18 Rate Blood Pressure 109/62 O2 Sat by Pulse 100 100 Oximetry (%) 10/11/19 18:00 Temperature 98.7 F Pulse Rate 93 H Respiratory 20 Rate Blood Pressure 114/72 O2 Sat by Pulse Oximetry (%) Microbiology 10/07/19 13:13 Urine - Urine Clean Catch Urine Culture - Final NO GROWTH OBTAINED Laboratory Results - last 24 hr 10/11/19 10/11/19 07:15 07:15 WBC 8.5 RBC 2.90 L Hgb 8.3 L Hct 25.0 L MCV 86.3 MCH 28.7 MCHC 33.3 RDW 12.8 Plt Count 176 MPV 10.5 Absolute Neuts (auto) 5.4 Neutrophils % 63.9 Lymphocytes % 25.7 Monocytes % 7.7 Eosinophils % 2.2 Basophils % 0.5 Sodium 137 Potassium 4.2 Chloride 108 H Carbon Dioxide 22 Anion Gap 7 L BUN 36.0 H Creatinine 1.7 H Est GFR (CKD-EPI)AfAm 45.68 Est GFR (CKD-EPI)NonAf 39.41 Random Glucose 96 Calcium 8.5 Current Medications Generic Name Dose Route Start Last Admin Trade Name Freq PRN Reason Stop Dose Admin Acetaminophen 1,000 mg 10/07/19 18:03 10/10/19 10:48 Ofirmev Injection - IVPB 1,000 mg Q6H PRN Administration PAIN LEVEL 1-5 Dextrose/Sodium Chloride 1,000 mls @ 100 mls/hr 10/10/19 19:30 10/10/19 21:28 D5-1/2ns - IV 100 mls/hr ASDIR LATESHA Administration Pantoprazole Sodium 80 mg/ 100 mls @ 10 mls/hr 10/11/19 17:45 Sodium Chloride IVPB Q10H LATESHA 8 MG/HR Melatonin 1 mg 10/08/19 22:00 10/10/19 21:28 Melatonin PO 1 mg HS LATESHA Administration Nicotine 21 mg 10/07/19 17:45 10/11/19 10:00 Nicoderm Patch - TD 21 mg DAILY LATESHA Administration Promethazine HCl 12.5 mg 10/10/19 13:04 10/10/19 14:38 Phenergan Injection - IVPB 12.5 mg Q6H PRN Administration NAUSEA AND/OR VOMITING Tamsulosin HCl 0.4 mg 10/07/19 17:00 10/11/19 09:00 Flomax - PO 0.4 mg 0830 LATESHA Administration A/P: Mild left hydronephrosis secondary to left ureteral calculus -CTAP: 3mm distal left ureteral calculus at level of lower pelvis with resultant mild hydronephrosis; non-obstructing, should pass, strain urine -US: no testicular torsion or epididymoorchitis; loculated/septated right epididymal cyst/spermatoceles -Cont. IV/PO hydration, clear liquids for now in view of EGD in AM -pain management; avoid nephrotoxins and NSAIDs kristine. in view of suspected UGIB -urology input appreciated, rec to strain all urine - will cont on Flomax and empiric Ceftriaxone Suspected UGIB -start PPI, avoid AC/NSAIDs, monitor CBC, get T/S for EGD in AM, ?source ulcer (maybe NSAID induced), tumor, polyp GI consult: Dr. DiGiorno MARY -likely pre-renal, now improved -US renal: unremarkable -US bladder: no post-void residual -continue to monitor renal function, continue IV fluids Anemia -?UGIB, hold AC, avoid nephrotoxins/NSAIDs, IVF, T/S, monitor CBC send anemia workup EGD in AM FEN Fluids: IVF Electrolytes: replete as indicated Nutrition: clear liquid then NPO @ MN DVT prophylaxis: SCD/TEDs Visit type - Emergency Visit Emergency Visit: Yes ED Registration Date: 10/07/19 Care time: The patient presented to the Emergency Department on the above date and was hospitalized for further evaluation of their emergent condition. - New Patient This patient is new to me today: Yes Date on this admission: 10/11/19 - Critical Care Critical Care patient: No - Discharge Referral Referred to [facility] Med P.C.: No
[2019-10-11] MEDS: DEXTROSE 5%-0.45% SALINE 1,000 ML IV SCH (21:45)
[2019-10-11] MEDS: PANTOPRAZOLE SODIUM 80 MG in SODIUM CHLORIDE 100 ML IVPB SCH (21:48)
[2019-10-11] MEDS: MELATONIN 1 MG TABLET PO SCH (21:48)
[2019-10-12] MEDS: PANTOPRAZOLE SODIUM 80 MG in SODIUM CHLORIDE 100 ML IVPB SCH ×2 (02:59→16:00)
[2019-10-12 07:14] LABS: BASO % 0.6 % (0-2.0); HEMATOCRIT 21.9 % (35.4-49); HEMOGLOBIN 7.7 GM/dL (11.7-16.9); LYMPH % 16.8 % (8-40); MCH 29.3 pg (25.7-33.7); MCHC 35.1 g/dl (32.0-35.9); MEAN CELL VOLUME 83.5 fl (80-96); MEAN PLT VOLUME 9.7 fl (7.5-11.1); MONO % 8.4 % (3.8-10.2); NEUT % 72.2 % (42.8-82.8); PLATELET COUNT 195 K/MM3 (134-434); RBC 2.62 M/mm3 (4.00-5.60); WHITE BLOOD COUNT 8.2 K/mm3 (4.0-10.0)
[2019-10-12 07:49] LABS: BLOOD UREA NITROGEN 23.7 mg/dL (7-18); CALCIUM 8.5 mg/dL (8.5-10.1); CREATININE 1.9 mg/dL (0.55-1.3); POTASSIUM 4.1 mmol/L (3.5-5.1)
--- NOTE | 2019-10-12 08:44 | PN ---
Progress Note, Physician Chief Complaint: 24hr events -h/h downtrending, 7.2/21.9 on AM Labs -2units prbcs ordered -awaiting egd today -no more hemoptysis - left scrotal pain significantly improved History of Present Illness: 74 M w. pmh smoker, h/o distal left ureteral stone presents to ED with L scrotal pain x 6 days. Pt states that he has pain isolated to his L testicle.. Admitted for hydronephrosis secondary to a ureteral stone and MARY, now with black stool and suspected UGIB, awaiting EGD today. Patient endorses some SOB on exertion which has been going on for "a while" but has worsened recently, denies overt CP. Still smoking trying to cut down, denies history of GI/ bleeding but has taken some Aleve over the past 1-2 weeks due to knee pain. - Current Medication List Current Medications: Active Medications Acetaminophen (Ofirmev Injection -) 1,000 mg IVPB Q6H PRN PRN Reason: PAIN LEVEL 1-5 Last Admin: 10/10/19 10:48 Dose: 1,000 mg Dextrose/Sodium Chloride (D5-1/2ns -) 1,000 mls @ 100 mls/hr IV ASDIR [facility] Last Admin: 10/11/19 21:45 Dose: Not Given Pantoprazole Sodium 80 mg/ (Sodium Chloride) 100 mls @ 10 mls/hr IVPB Q10H [facility] Last Admin: 10/12/19 02:59 Dose: Not Given Melatonin (Melatonin) 1 mg PO HS [facility] Last Admin: 10/11/19 21:48 Dose: 1 mg Nicotine (Nicoderm Patch -) 21 mg TD DAILY [facility] Last Admin: 10/11/19 10:00 Dose: 21 mg Promethazine HCl (Phenergan Injection -) 12.5 mg IVPB Q6H PRN PRN Reason: NAUSEA AND/OR VOMITING Last Admin: 10/10/19 14:38 Dose: 12.5 mg Tamsulosin HCl (Flomax -) 0.4 mg PO 0830 [facility] Last Admin: 10/11/19 09:00 Dose: 0.4 mg - Objective Vital Signs: Vital Signs Temperature 98.7 F 10/12/19 06:00 Pulse Rate 92 H 10/12/19 06:00 Respiratory Rate 20 10/12/19 06:00 Blood Pressure 97/54 L 10/12/19 06:00 O2 Sat by Pulse Oximetry (%) 97 10/11/19 21:00 Constitutional: Yes: Well Nourished, No Distress, Calm Eyes: Yes: Conjunctiva Clear, EOM Intact, PERRL HENT: Yes: Atraumatic, Normocephalic, Other Neck: Yes: Supple Cardiovascular: Yes: Regular Rate and Rhythm Respiratory: Yes: Regular, CTA Bilaterally Gastrointestinal: Yes: Soft, Hypoactive Bowel Sounds ...Rectal Exam: Yes: Deferred Musculoskeletal: Yes: WNL Extremities: Yes: WNL Edema: No Peripheral Pulses WNL: Yes Peripheral Pulses: Left Radial: 2+, Right Radial: 2+ Integumentary: Yes: Tattoos Neurological: Yes: Alert, Oriented ...Motor Strength: WNL Psychiatric: Yes: Alert, Oriented Labs: CBC, BMP 10/12/19 06:45 10/12/19 06:45 INR, PTT INR 1.07 (0.82-1.09) 10/08/19 07:25 Problem List - Problems (1) Anemia Assessment/Plan: iron studies reveal some component of iron def anemia 2 units prbcs today start iron + vitamin c Code(s): D64.9 - ANEMIA, UNSPECIFIED (2) Elevated serum creatinine Assessment/Plan: continue IV hydration trend cr levels, would consider renal consult if continues to rise avoid NSAIDs/nephrotoxic agents replete electrolytes PRB Code(s): R79.89 - OTHER SPECIFIED ABNORMAL FINDINGS OF BLOOD CHEMISTRY (3) Kidney stone Assessment/Plan: --continue tamsulosin --urology following --CTAP: 3mm distal left ureteral calculus at level of lower pelvis with resultant mild hydronephrosis; non-obstructing, should pass, strain urine --US: no testicular torsion or epididymoorchitis; loculated/septated right epididymal cyst/spermatoceles --IV fluids Code(s): N20.0 - CALCULUS OF KIDNEY (4) Upper GI bleeding Assessment/Plan: NPO for EGD today PPI PRN promethazine for n/v Code(s): K92.2 - GASTROINTESTINAL HEMORRHAGE, UNSPECIFIED (5) Insomnia Assessment/Plan: melatonin PRN q Code(s): G47.00 - INSOMNIA, UNSPECIFIED (6) Tobacco dependence Assessment/Plan: nicotine patch daily benefits of smoking cessation discussed Code(s): F17.200 - NICOTINE DEPENDENCE, UNSPECIFIED, UNCOMPLICATED Impression/Plan Impression/Plan: DVT prophylaxis: SCDs Dispo: continues to require inpatient care. Full code. Visit type - Emergency Visit Emergency Visit: Yes ED Registration Date: 10/07/19 Care time: The patient presented to the Emergency Department on the above date and was hospitalized for further evaluation of their emergent condition. - New Patient This patient is new to me today: Yes Date on this admission: 10/12/19 - Critical Care Critical Care patient: No - Discharge Referral Referred to [facility] Med P.C.: No
[2019-10-12] MEDS: TAMSULOSIN HCL 0.4 MG CAP PO SCH (09:59)
[2019-10-12] MEDS: NICOTINE 21 MG/24 HOURS TOPICAL PATCH TD SCH (09:59)
--- NOTE | 2019-10-12 12:31 | PN ---
Progress Note, Physician Chief Complaint: Nephrolithiasis UGIB History of Present Illness: NAD Going for EGD today - Current Medication List Current Medications: Active Medications Acetaminophen (Ofirmev Injection -) 1,000 mg IVPB Q6H PRN PRN Reason: PAIN LEVEL 1-5 Last Admin: 10/10/19 10:48 Dose: 1,000 mg Ascorbic Acid (Vitamin C -) 500 mg PO DAILY [facility] Ferrous Gluconate (Fergon -) 324 mg PO DAILY [facility] Dextrose/Sodium Chloride (D5-1/2ns -) 1,000 mls @ 100 mls/hr IV ASDIR [facility] Last Admin: 10/11/19 21:45 Dose: Not Given Pantoprazole Sodium 80 mg/ (Sodium Chloride) 100 mls @ 10 mls/hr IVPB Q10H [facility] Last Admin: 10/12/19 02:59 Dose: Not Given Melatonin (Melatonin) 1 mg PO HS [facility] Last Admin: 10/11/19 21:48 Dose: 1 mg Nicotine (Nicoderm Patch -) 21 mg TD DAILY [facility] [place] Last Admin: 10/12/19 09:59 Dose: 21 mg Promethazine HCl (Phenergan Injection -) 12.5 mg IVPB Q6H PRN PRN Reason: NAUSEA AND/OR VOMITING Last Admin: 10/10/19 14:38 Dose: 12.5 mg Tamsulosin HCl (Flomax -) 0.4 mg PO 0830 [facility] Last Admin: 10/12/19 09:59 Dose: 0.4 mg - Objective Vital Signs: Vital Signs Temperature 98.7 F 10/12/19 06:00 Pulse Rate 92 H 10/12/19 06:00 Respiratory Rate 10/12/19 06:00 Blood Pressure 97/54 L 10/12/19 06:00 O2 Sat by Pulse Oximetry (%) 97 10/11/19 21:00 Constitutional: Yes: Well Nourished, No Distress, Calm Cardiovascular: Yes: Regular Rate and Rhythm Respiratory: Yes: Regular Gastrointestinal: Yes: WNL, Normal Bowel Sounds, Soft Genitourinary: Yes: WNL Musculoskeletal: Yes: WNL Extremities: Yes: WNL Edema: No Peripheral Pulses WNL: Yes Neurological: Yes: Alert, Oriented Psychiatric: Yes: Alert, Oriented Labs: CBC, BMP 10/12/19 06:45 10/12/19 06:45 INR, PTT INR 1.07 (0.82-1.09) 10/08/19 07:25 Problem List - Problems (1) Anemia Assessment/Plan: Stool guaiac repeat trace occult -GI consult -iron studies unremarkable -S/P 1 unit PRBC, 2 ordered -monitor trend Problems reviewed: Yes Code(s): D64.9 - ANEMIA, UNSPECIFIED (2) Insomnia Assessment/Plan: -Melatonin HS Problems reviewed: Yes Code(s): G47.00 - INSOMNIA, UNSPECIFIED (3) Kidney stone Assessment/Plan: -seen by Urology -CTAP: 3mm distal left ureteral calculus at level of lower pelvis with resultant mild hydronephrosis; non-obstructing, should pass, strain urine -US: no testicular torsion or epididymoorchitis; loculated/septated right epididymal cyst/spermatoceles -Continue IV fluids -Conservative management Problems reviewed: Yes Code(s): N20.0 - CALCULUS OF KIDNEY (4) Upper GI bleeding Assessment/Plan: -GI consult appreciated -EGD -PPI drip -monitor for overt bleeding Problems reviewed: Yes Code(s): K92.2 - GASTROINTESTINAL HEMORRHAGE, UNSPECIFIED Assessment/Plan see problem list
--- NOTE | 2019-10-12 12:53 | PN ---
Progress Note (short form) - Note Progress Note: Feels better. No occult bleeding overnight. No CP or SOB. For endoscopy. Intake & Output 10/09/19 10/10/19 10/11/19 10/12/19 23:59 23:59 23:59 23:59 Intake Total 1350 2755 1300 Output Total 1030 1150 30 Balance 320 1605 1270 Last Vital Signs Temp Pulse Resp BP Pulse Ox 98.7 F 92 H 20 97/54 L 97 10/12/19 06:00 10/12/19 06:00 10/12/19 06:00 10/12/19 06:00 10/11/19 21:00 Active Medications Acetaminophen (Ofirmev Injection -) 1,000 mg IVPB Q6H PRN PRN Reason: PAIN LEVEL 1-5 Last Admin: 10/10/19 10:48 Dose: 1,000 mg Ascorbic Acid (Vitamin C -) 500 mg PO DAILY [facility] Ferrous Gluconate (Fergon -) 324 mg PO DAILY [facility] Dextrose/Sodium Chloride (D5-1/2ns -) 1,000 mls @ 100 mls/hr IV ASDIR [facility] Last Admin: 10/11/19 21:45 Dose: Not Given Pantoprazole Sodium 80 mg/ (Sodium Chloride) 100 mls @ 10 mls/hr IVPB Q10H [facility] Last Admin: 10/12/19 02:59 Dose: Not Given Melatonin (Melatonin) 1 mg PO HS [facility] Last Admin: 10/11/19 21:48 Dose: 1 mg Nicotine (Nicoderm Patch -) 21 mg TD DAILY [facility] Last Admin: 10/12/19 09:59 Dose: 21 mg Promethazine HCl (Phenergan Injection -) 12.5 mg IVPB Q6H PRN PRN Reason: NAUSEA AND/OR VOMITING Last Admin: 10/10/19 14:38 Dose: 12.5 mg Tamsulosin HCl (Flomax -) 0.4 mg PO 0830 [facility] Last Admin: 10/12/19 09:59 Dose: 0.4 mg Constitutional: Yes: NAD Eyes: Yes: EOM Intact HENT: Yes: Normocephalic Neck: Yes: Trachea Midline Cardiovascular: Yes: Regular Rate and Rhythm Respiratory: Yes: Diminished Gastrointestinal: Yes: Normal Bowel Sounds Renal/: Yes: No Hematuria Breast(s): Yes: WNL Musculoskeletal: Yes: WNL Extremities: Yes: WNL Edema: No Integumentary: Yes: WNL Neurological: Yes: Alert ...Motor Strength: WNL Psychiatric: Yes: WNL Labs: Laboratory Results - last 24 hr 10/11/19 10/12/19 10/12/19 18:30 06:45 06:45 WBC 8.2 RBC 2.62 L Hgb 7.7 L Hct 21.9 L MCV 83.5 MCH 29.3 MCHC 35.1 RDW 14.0 Plt Count 195 MPV 9.7 Absolute Neuts (auto) 5.9 Neutrophils % 72.2 Lymphocytes % 16.8 Monocytes % 8.4 Eosinophils % 2.0 Basophils % 0.6 Nucleated RBC % 0 Sodium 141 Potassium 4.1 Chloride 110 H Carbon Dioxide 26 Anion Gap 5 L BUN 23.7 H Creatinine 1.9 H Est GFR (CKD-EPI)AfAm 39.93 Est GFR (CKD-EPI)NonAf 34.45 Random Glucose 90 Calcium 8.5 Iron 34 L TIBC 143 L Iron Saturation 23 Unsaturated IBC 109 L Ferritin 357.8 Vitamin B12 413 Serum Folate 5 Blood Type O POSITIVE Antibody Screen Negative Crossmatch See Detail 10/12/19 09:15 WBC RBC Hgb Hct MCV MCH MCHC RDW Plt Count MPV Absolute Neuts (auto) Neutrophils % Lymphocytes % Monocytes % Eosinophils % Basophils % Nucleated RBC % Sodium Potassium Chloride Carbon Dioxide Anion Gap BUN Creatinine Est GFR (CKD-EPI)AfAm Est GFR (CKD-EPI)NonAf Random Glucose Calcium Iron TIBC Iron Saturation Unsaturated IBC Ferritin Vitamin B12 Serum Folate Blood Type O POSITIVE Antibody Screen Crossmatch Problem List - Problems (1) Upper GI bleeding Code(s): K92.2 - GASTROINTESTINAL HEMORRHAGE, UNSPECIFIED (2) Kidney stone Code(s): N20.0 - CALCULUS OF KIDNEY Assessment/Plan COPD: STABLE RENAL COLIC WITH RETCHING HEMETEMESIS BLOOD LOSS ANEMIA MONITOR CBC FOR EGD IV FLUIDS IV PROTONIX/O2 NEEDED ANALGESIA FOR RENAL COLIC Dr Harper
[2019-10-12 13:19] LABS: RETICULOCYTES 2.95 % (0.5-1.5)
[2019-10-12] MEDS ORDERED: EPINEPHrine 1:10,000 (P-F SYR) 1 MG/10 ML DISP.SYRIN ONE (14:55)
--- NOTE | 2019-10-12 15:15 | PN ---
Progress Note (short form) - Note Progress Note: EGD complete. Report placed in procedural section of physical chart and will be scanned into [employer]. Problem List - Problems (1) Upper GI bleeding Code(s): K92.2 - GASTROINTESTINAL HEMORRHAGE, UNSPECIFIED
[2019-10-12] MEDS: DEXTROSE 5%-0.45% SALINE 1,000 ML IV SCH (21:11)
[2019-10-12] MEDS: MELATONIN 1 MG TABLET PO SCH (21:13)
[2019-10-13] MEDS: PANTOPRAZOLE SODIUM 80 MG in SODIUM CHLORIDE 100 ML IVPB SCH ×3 (00:06→10:28)
[2019-10-13 08:20] LABS: BASO % 0.5 % (0-2.0); EOS % 2.5 % (0-4.5); HEMATOCRIT 25.4 % (35.4-49); LYMPH % 20.8 % (8-40); MCH 29.5 pg (25.7-33.7); MCHC 35.3 g/dl (32.0-35.9); MEAN CELL VOLUME 83.4 fl (80-96); MONO % 10.3 % (3.8-10.2); NEUT % 65.9 % (42.8-82.8); PLATELET COUNT 189 K/MM3 (134-434); RBC 3.04 M/mm3 (4.00-5.60); RDW 13.9 % (11.9-15.9); WHITE BLOOD COUNT 7.8 K/mm3 (4.0-10.0)
[2019-10-13 08:37] LABS: ALBUMIN 2.3 g/dl (3.4-5.0); BILIRUBIN,TOTAL 0.5 mg/dL (0.2-1); BLOOD UREA NITROGEN 16.3 mg/dL (7-18); CALCIUM 8.3 mg/dL (8.5-10.1); CREATININE 1.8 mg/dL (0.55-1.3); MAGNESIUM 1.8 mg/dL (1.8-2.4); PHOSPHOROUS 3.2 mg/dL (2.5-4.9); POTASSIUM 4.2 mmol/L (3.5-5.1)
--- NOTE | 2019-10-13 09:50 | PN ---
Progress Note, Physician - Current Medication List Current Medications: Active Medications Acetaminophen (Ofirmev Injection -) 1,000 mg IVPB Q6H PRN PRN Reason: PAIN LEVEL 1-5 Last Admin: 10/10/19 10:48 Dose: 1,000 mg Ascorbic Acid (Vitamin C -) 500 mg PO DAILY [facility] Ferrous Gluconate (Fergon -) 324 mg PO DAILY [facility] Dextrose/Sodium Chloride (D5-1/2ns -) 1,000 mls @ 100 mls/hr IV ASDIR [facility] Last Admin: 10/12/19 21:11 Dose: 100 mls/hr Pantoprazole Sodium 80 mg/ (Sodium Chloride) 100 mls @ 10 mls/hr IVPB Q10H [facility] Last Admin: 10/13/19 03:26 Dose: 10 mls/hr Melatonin (Melatonin) 1 mg PO HS [facility] Last Admin: 10/12/19 21:13 Dose: 1 mg Nicotine (Nicoderm Patch -) 21 mg TD DAILY [facility] Last Admin: 10/12/19 09:59 Dose: 21 mg Promethazine HCl (Phenergan Injection -) 12.5 mg IVPB Q6H PRN PRN Reason: NAUSEA AND/OR VOMITING Last Admin: 10/10/19 14:38 Dose: 12.5 mg Tamsulosin HCl (Flomax -) 0.4 mg PO 0830 [facility] Last Admin: 10/12/19 09:59 Dose: 0.4 mg - Objective Vital Signs: Vital Signs Temperature 97.9 F 10/13/19 06:00 Pulse Rate 82 10/13/19 06:00 Respiratory Rate 18 10/13/19 06:00 Blood Pressure 104/55 L 10/13/19 06:00 O2 Sat by Pulse Oximetry (%) 100 10/12/19 21:00 Cardiovascular: Yes: S1, S2 Respiratory: Yes: Regular, CTA Bilaterally Gastrointestinal: Yes: Normal Bowel Sounds, Soft Labs: CBC, BMP 10/13/19 06:25 10/13/19 06:25 INR, PTT INR 1.07 (0.82-1.09) 10/08/19 07:25 Assessment/Plan - Problems (1) Anemia Assessment/Plan: Stool guaiac repeat trace occult -GI consult--EGD done yesterday--Esophagitis-Doudinitis -iron studies unremarkable -S/P 1 unit PRBC, 2 ordered -monitor trend---9 -Advance Diet Problems reviewed: Yes Code(s): D64.9 - ANEMIA, UNSPECIFIED (2) Insomnia Assessment/Plan: -Melatonin HS Problems reviewed: Yes Code(s): G47.00 - INSOMNIA, UNSPECIFIED (3) Kidney stone Assessment/Plan: -seen by Urology -CTAP: 3mm distal left ureteral calculus at level of lower pelvis with resultant mild hydronephrosis; non-obstructing, should pass, strain urine -US: no testicular torsion or epididymoorchitis; loculated/septated right epididymal cyst/spermatoceles -Continue IV fluids -Conservative management Problems reviewed: Yes Code(s): N20.0 - CALCULUS OF KIDNEY (4) Upper GI bleeding Assessment/Plan: -GI consult appreciated -Eesophagitis-doudinitis -PPI drip -monitor for overt bleeding Problems reviewed: Yes Code(s): K92.2 - GASTROINTESTINAL HEMORRHAGE, UNSPECIFIED Assessment/Plan
[2019-10-13] MEDS: ASCORBIC ACID 500 MG TABLET (FP) PO SCH (10:23)
[2019-10-13] MEDS: FERROUS GLUCONATE 324 MG TAB (FP) PO SCH (10:23)
[2019-10-13] MEDS: NICOTINE 21 MG/24 HOURS TOPICAL PATCH TD SCH (10:23)
[2019-10-13] MEDS: TAMSULOSIN HCL 0.4 MG CAP PO SCH (10:23)
--- NOTE | 2019-10-13 13:23 | PN.GI ---
GI Progress Note Subjective: Pt seen/examined at bedside, feeling better, wants to go home. No bms reported and no further bleeding. Denies abdominal pain. Tolerating clear liquid diet. - Objective Vital Signs: Vital Signs Temperature 97.9 F 10/13/19 06:00 Pulse Rate 82 10/13/19 06:00 Respiratory Rate 18 10/13/19 06:00 Blood Pressure 104/55 L 10/13/19 06:00 O2 Sat by Pulse Oximetry (%) 100 10/12/19 21:00 Constitutional: Well Nourished, No Distress, Calm Cardiovascular: Yes: WNL, Regular Rate and Rhythm Respiratory: Yes: WNL, Regular, CTA Bilaterally ...Palpate: Yes: Other (Abd soft, nt, nd) Labs: CBC, BMP 10/13/19 06:25 10/13/19 06:25 INR, PTT INR 1.07 (0.82-1.09) 10/08/19 07:25 Problem List - Problems (1) Upper GI bleeding Assessment/Plan: S/p EGD yesterday revealing distal esophagitis with red spot, hiatal hernia and duodenitis. Hb stable, no further bleeding. -Recommend advance diet as tolerated -Change to PPI bid, would recommend continue for minimum of 2-3 months then daily PPI -Avoid nonessential NSAIDs -Antireflux measures advised -If further overt bleeding with drop in Hb please notify GI for possible repeat EGD with therapeutic intent at that time Code(s): K92.2 - GASTROINTESTINAL HEMORRHAGE, UNSPECIFIED
[2019-10-13 18:48] LABS: HEMOGLOBIN 9.9 GM/dL (11.7-16.9); MCH 28.9 pg (25.7-33.7); MCHC 34.1 g/dl (32.0-35.9); MEAN CELL VOLUME 84.9 fl (80-96); MEAN PLT VOLUME 10.1 fl (7.5-11.1); PLATELET COUNT 202 K/MM3 (134-434); RBC 3.41 M/mm3 (4.00-5.60); RDW 14.2 % (11.9-15.9); WHITE BLOOD COUNT 8.7 K/mm3 (4.0-10.0)
[2019-10-13] MEDS: PANTOPRAZOLE 40 MG TABLET PO SCH (21:18)
[2019-10-13] MEDS: MELATONIN 1 MG TABLET PO SCH (21:18)
[2019-10-14 07:45] LABS: BASO % 0.6 % (0-2.0); EOS % 1.8 % (0-4.5); HEMATOCRIT 26.9 % (35.4-49); HEMOGLOBIN 9.4 GM/dL (11.7-16.9); LYMPH % 21.3 % (8-40); MCH 29.3 pg (25.7-33.7); MCHC 34.9 g/dl (32.0-35.9); MEAN CELL VOLUME 84.1 fl (80-96); MEAN PLT VOLUME 9.7 fl (7.5-11.1); MONO % 9.3 % (3.8-10.2); PLATELET COUNT 206 K/MM3 (134-434); RBC 3.19 M/mm3 (4.00-5.60); RDW 13.8 % (11.9-15.9); WHITE BLOOD COUNT 8.2 K/mm3 (4.0-10.0)
[2019-10-14 08:27] LABS: ALBUMIN 2.4 g/dl (3.4-5.0); BILIRUBIN,TOTAL 0.5 mg/dL (0.2-1); BLOOD UREA NITROGEN 13.8 mg/dL (7-18); CALCIUM 8.7 mg/dL (8.5-10.1); CREATININE 1.9 mg/dL (0.55-1.3); POTASSIUM 4.4 mmol/L (3.5-5.1); TOT PROT 5.3 g/dl (6.4-8.2)
--- NOTE | 2019-10-14 08:27 | DS ---
Physical Examination Vital Signs: Vital Signs Temperature 98.5 F 10/14/19 06:00 Pulse Rate 78 10/14/19 06:00 Respiratory Rate 20 10/14/19 06:00 Blood Pressure 118/70 10/14/19 06:00 O2 Sat by Pulse Oximetry (%) 98 10/13/19 21:00 Cardiovascular: Yes: Regular Rate and Rhythm Respiratory: Yes: Regular, CTA Bilaterally Gastrointestinal: Yes: Normal Bowel Sounds, Soft Musculoskeletal: Yes: Joint Swelling (knee) Labs: CBC, BMP 10/14/19 06:30 10/14/19 06:30 Discharge Summary Problems reviewed: Yes Reason For Visit: CALCULUS OF KIDNEY Current Active Problems Anemia (Acute) Elevated serum creatinine (Acute) Insomnia (Acute) Kidney stone (Acute) Tobacco dependence (Acute) Upper GI bleeding (Acute) Hospital Course: - Problems (1) Anemia Assessment/Plan: Stool guaiac repeat trace occult -GI consult--EGD done yesterday--Esophagitis-Doudinitis -iron studies unremarkable -S/P PRBC -monitor trend---9 -Advance Diet Problems reviewed: Yes Code(s): D64.9 - ANEMIA, UNSPECIFIED (2) Insomnia Assessment/Plan: -Melatonin HS Problems reviewed: Yes Code(s): G47.00 - INSOMNIA, UNSPECIFIED (3) Kidney stone Assessment/Plan: -seen by Urology -CTAP: 3mm distal left ureteral calculus at level of lower pelvis with resultant mild hydronephrosis; non-obstructing, should pass, strain urine -US: no testicular torsion or epididymoorchitis; loculated/septated right epididymal cyst/spermatoceles -off IV fluids -Conservative management Problems reviewed: Yes Code(s): N20.0 - CALCULUS OF KIDNEY (4) Upper GI bleeding Assessment/Plan: -GI consult appreciated -Eesophagitis-doudinitis -PPI drip--po -monitor for overt bleeding Problems reviewed: Yes Code(s): K92.2 - GASTROINTESTINAL HEMORRHAGE, UNSPECIFIED (5) Knee Pain Assessment/Plan: -Probably DJD r/o gout -Uric Acid -Ortho -Tylenol Condition: Improved - Instructions Referrals: Kit Campbell MD [Staff Physician] - 2 Weeks Disposition: HOME - Home Medications Comprehensive Discharge Medication List: Ambulatory Orders Ascorbic Acid [Vitamin C -] 500 mg PO DAILY #30 tablet 10/14/19 Ferrous Gluconate [Fergon -] 324 mg PO DAILY #30 tab 10/14/19 Nicotine Patch [Nicoderm Patch -] 21 mg TD DAILY #30 patch 10/14/19 Pantoprazole Sodium [Protonix -] 40 mg PO BID #60 tablet.ec 10/14/19 Tamsulosin HCl [Flomax -] 0.4 mg PO 30 #30 cap.er.24h 10/14/19
--- NOTE | 2019-10-14 08:55 | CON.ORTH ---
Consult Reason for Consultation:: left knee pain - Past Medical History [employer]ATOR: No: Alzheimer's Cardio/Vascular: No: AFIB Pulmonary: No: COPD Gastrointestinal: No: Ascites Hepatobiliary: No: Cirrhosis Renal/: Yes: Renal Calculi Infectious Disease: No: AIDS Psych: No: Addictions Musculoskeletal: Yes: Osteoarthritis Rheumatology: No: Fibromyalgia ENT: No: Allergic Rhinitis Endocrine: No: [place]'s Disease, Diabetes Mellitus - Past Surgical History Past Surgical History: Yes: None Additional Surgical History: Denies - Alcohol/Substance Use Hx Alcohol Use: No History of Substance Use: reports: None - Smoking History Smoking history: Current every day smoker Have you smoked in the past 12 months: No - Social History Usual Living Arrangement: Alone ADL: Independent History of Recent Travel: No Home Medications - Allergies Allergies/Adverse Reactions: Allergies Allergy/AdvReac Type Severity Reaction Status Date / Time No Known Allergies Allergy Verified 10/07/19 10:10 - Home Medications Home Medications: Ambulatory Orders Ascorbic Acid [Vitamin C -] 500 mg PO DAILY #30 tablet 10/14/19 Ferrous Gluconate [Fergon -] 324 mg PO DAILY #30 tab 10/14/19 Nicotine Patch [Nicoderm Patch -] 21 mg TD DAILY #30 patch 10/14/19 Pantoprazole Sodium [Protonix -] 40 mg PO BID #60 tablet.ec 10/14/19 Tamsulosin HCl [Flomax -] 0.4 mg PO 0830 #30 cap.er.24h 10/14/19 Physical Exam for Ortho Vital Signs: Vital Signs Temperature 98.5 F 10/14/19 06:00 Pulse Rate 78 10/14/19 06:00 Respiratory Rate 20 10/14/19 06:00 Blood Pressure 118/70 10/14/19 06:00 O2 Sat by Pulse Oximetry (%) 98 10/13/19 21:00 Labs: CBC, BMP 10/14/19 06:30 10/14/19 06:30 INR, PTT INR 1.07 (0.82-1.09) 10/08/19 07:25 - Lower Extremity Knee: Yes: Left, Limited ROM, Pain, Swelling, Tenderness, Other (+1 effusion, + ttp, rom 2-50, calf soft, nt, nvi) Assessment/Plan 74 M with no PMH admitted for GI bleed has been c/o left knee pain for the past 4 weeks. Denies any injury/trauma. H/o left knee arthroscopy 25 years ago. Pt is being d/c'd this am. a/p- left knee djd vs mensical pathology As pt is being d/c'd this am, he will follow-up as outpt ice ,elevation tylenol for pain f/u in the office next week d/w Dr. Law
[2019-10-14 09:14] LABS: URIC ACID 6.8 mg/dL (2.6-7.2)
[2019-10-14] MEDS ORDERED: COLCHICINE 0.6 MG CAP PO ONE (09:21)
[2019-10-14] MEDS: TAMSULOSIN HCL 0.4 MG CAP PO SCH (10:17)
[2019-10-14] MEDS: NICOTINE 21 MG/24 HOURS TOPICAL PATCH TD SCH (10:17)
[2019-10-14] MEDS: FERROUS GLUCONATE 324 MG TAB (FP) PO SCH (10:17)
[2019-10-14] MEDS: PANTOPRAZOLE 40 MG TABLET PO SCH (10:17)
[2019-10-14] MEDS: ASCORBIC ACID 500 MG TABLET (FP) PO SCH (10:18)
--- NOTE | 2019-10-14 11:10 | PN ---
Progress Note (short form) - Note Progress Note: Feels better. No occult bleeding overnight. No CP or SOB. Intake & Output 10/11/19 10/12/19 10/13/19 10/14/19 23:59 23:59 23:59 23:59 Intake Total 2755 1860 2160 320 Output Total 3343 391 8217 500 Balance 1605 1230 1060 -180 Last Vital Signs Temp Pulse Resp BP Pulse Ox 98.5 F 78 20 118/70 98 10/14/19 06:00 10/14/19 06:00 10/14/19 06:00 10/14/19 06:00 10/13/19 21:00 Active Medications Acetaminophen (Ofirmev Injection -) 1,000 mg IVPB Q6H PRN PRN Reason: PAIN LEVEL 1-5 Last Admin: 10/10/19 10:48 Dose: 1,000 mg Ascorbic Acid (Vitamin C -) 500 mg PO DAILY [facility] Last Admin: 10/14/19 10:18 Dose: 500 mg Ferrous Gluconate (Fergon -) 324 mg PO DAILY [facility] Last Admin: 10/14/19 10:17 Dose: 324 mg Melatonin (Melatonin) 1 mg PO HS [facility] Last Admin: 10/13/19 21:18 Dose: 1 mg Nicotine (Nicoderm Patch -) 21 mg TD DAILY [facility] Last Admin: 10/14/19 10:17 Dose: 21 mg Pantoprazole Sodium (Protonix -) 40 mg PO BID [facility] Last Admin: 10/14/19 10:17 Dose: 40 mg Promethazine HCl (Phenergan Injection -) 12.5 mg IVPB Q6H PRN PRN Reason: NAUSEA AND/OR VOMITING Last Admin: 10/10/19 14:38 Dose: 12.5 mg Tamsulosin HCl (Flomax -) 0.4 mg PO 0830 [facility] Last Admin: 10/14/19 10:17 Dose: 0.4 mg Constitutional: Yes: NAD Eyes: Yes: EOM Intact HENT: Yes: Normocephalic Neck: Yes: Trachea Midline Cardiovascular: Yes: Regular Rate and Rhythm Respiratory: Yes: Diminished Gastrointestinal: Yes: Normal Bowel Sounds Renal/: Yes: No Hematuria Breast(s): Yes: WNL Musculoskeletal: Yes: WNL Extremities: Yes: WNL Edema: No Integumentary: Yes: WNL Neurological: Yes: Alert ...Motor Strength: WNL Psychiatric: Yes: WNL Labs: Laboratory Results - last 24 hr 10/13/19 10/14/19 10/14/19 18:00 06:30 06:30 WBC 8.7 8.2 RBC 3.41 L 3.19 L Hgb 9.9 L 9.4 L Hct 29.0 L 26.9 L MCV 84.9 84.1 MCH 28.9 29.3 MCHC 34.1 34.9 RDW 14.2 13.8 Plt Count 202 206 MPV 10.1 9.7 Absolute Neuts (auto) 5.5 Neutrophils % 67.0 Lymphocytes % 21.3 Monocytes % 9.3 Eosinophils % 1.8 Basophils % 0.6 Nucleated RBC % 0 Sodium 137 Potassium 4.4 Chloride 106 Carbon Dioxide 26 Anion Gap 6 L BUN 13.8 Creatinine 1.9 H Est GFR (CKD-EPI)AfAm 39.93 Est GFR (CKD-EPI)NonAf 34.45 Random Glucose 96 Uric Acid 6.8 Calcium 8.7 Total Bilirubin 0.5 AST 20 ALT 28 Alkaline Phosphatase 70 Total Protein 5.3 L Albumin 2.4 L Problem List - Problems (1) Upper GI bleeding Code(s): K92.2 - GASTROINTESTINAL HEMORRHAGE, UNSPECIFIED (2) Kidney stone Code(s): N20.0 - CALCULUS OF KIDNEY Assessment/Plan COPD: STABLE RENAL COLIC WITH RETCHING HEMETEMESIS BLOOD LOSS ANEMIA ANALGESIA FOR RENAL COLIC DC PLANNING OUTPATIENT PULMONARY WORKUP Dr Harper
[2019-10-14 11:52] VITALS: BP 124/80; PULSE 82; TEMP 98.4
== END 2019-10-14 11:42 | disposition home or self-care (01) | DRG 683 ==
LOC: FER 10:09 → FM/S 15:54 → J4W 10-11 14:49
PROVIDERS: ADMIT Internal Medicine; ATTEND Family Medicine
PROC: 30233N1 Transfusion of Nonautologous Red Blood Cells into Peripheral Vein, Percutaneous Approach (ICD-10-PCS; 2019-10-12)
PROC: 0DJ08ZZ Inspection of Upper Intestinal Tract, Via Natural or Artificial Opening Endoscopic (ICD-10-PCS; principal; 2019-10-12 13:45)
DX: N17.9 Acute kidney failure, unspecified (principal); K92.2 Gastrointestinal hemorrhage, unspecified; D62 Acute posthemorrhagic anemia; R11.2 Nausea with vomiting, unspecified; K29.80 Duodenitis without bleeding; N13.2 Hydronephrosis with renal and ureteral calculous obstruction; G47.00 Insomnia, unspecified; K21.0 Gastro-esophageal reflux disease with esophagitis; K44.9 Diaphragmatic hernia without obstruction or gangrene
CPT/HCPCS: 36415; 36430; 36511; 71250-TC; 74176-TC; 76775-TC; 76856-TC; 76870-TC; 80048; 80053; 81003; 81015; 82272; 82607; 82728; 82746; 83540; 83550; 83735; 83880; 84100; 84550; 85025; 85027; 85044; 85610; 85730; 86850; 86900; 86901; 86922; 87086; 93005; 99283-25; J0131; J1644; J7030; P9038; P9058

== ENCOUNTER 2023-07-07 11:50 | Day surgery (SDC) | payer OTHER ==
[2023-07-07] MEDS ORDERED: FERRIC CARBOXYMALTOSE 750 MG in SODIUM CHLORIDE 250 ML IVPB ONE (12:30)
[2023-07-07 13:39] VITALS: BP 115/78; PULSE 68; RESP 18; TEMP 97.9
== END 2023-07-07 13:30 | disposition home or self-care (01) ==
LOC: FINFUSION 11:50 → FM/S 11:51 → FINFUSION 13:30
PROVIDERS: ATTEND Family Medicine
PROC: 3E033GC Introduction of Other Therapeutic Substance into Peripheral Vein, Percutaneous Approach (ICD-10-PCS; principal; 2023-07-07)
DX: D50.9 Iron deficiency anemia, unspecified (principal)
CPT/HCPCS: 96365; J1439

== ENCOUNTER 2023-07-14 11:46 | Day surgery (SDC) | payer OTHER ==
[2023-07-14] MEDS ORDERED: FERRIC CARBOXYMALTOSE 750 MG in SODIUM CHLORIDE 250 ML IVPB ONE (12:00)
[2023-07-14 17:36] VITALS: BP 120/68; PULSE 68; RESP 18; TEMP 97.7
== END 2023-07-14 14:13 | disposition home or self-care (01) ==
LOC: FINFUSION 11:46 → FM/S 11:49 → FINFUSION 14:13
PROVIDERS: ATTEND Family Medicine
PROC: 3E033GC Introduction of Other Therapeutic Substance into Peripheral Vein, Percutaneous Approach (ICD-10-PCS; principal; 2023-07-14)
DX: D50.9 Iron deficiency anemia, unspecified (principal)
CPT/HCPCS: 96365; J1439